=== PATIENT | female | born 1995 | race Caucasian/White ===

== ENCOUNTER 2018-04-29 13:38 | Outpatient (CLI) | payer BC ==
[~2018-04-29 13:38] MED LIST: CAMRESE PO; CEPH-570 PO; METH18TA PO; SERT100T PO
== END 2018-04-29 23:59 | disposition home or self-care (01) ==
LOC: WOU 13:38
PROVIDERS: ATTEND Podiatrist Foot & Ankle Surgery
DX: B07.0 Plantar wart (principal); M79.671 Pain in right foot; F90.9 Attention-deficit hyperactivity disorder, unspecified type; Z79.899 Other long term (current) drug therapy; F41.9 Anxiety disorder, unspecified; F32.9 Major depressive disorder, single episode, unspecified
CPT/HCPCS: G0463; Z7610

== ENCOUNTER 2018-06-07 15:35 | Outpatient (CLI) | payer BC ==
[2018-06-07 16:25] LABS: BASOPHILS % (AUTO) 0.3 % (0.0-2.0); HEMATOCRIT 45 % (33-45); HEMOGLOBIN 14.6 g/dL (11.5-14.8); LYMPHOCYTES # (AUTO) 1.8 /CMM (0.8-4.8); LYMPHOCYTES % (AUTO) 27.8 % (20.0-44.0); MEAN CORPUSCULAR HEMOGLOBIN 31 PG (26.0-33.0); MEAN CORPUSCULAR HGB CONC 33 g/dl (31.0-36.0); MEAN CORPUSCULAR VOLUME 96 fL (82-100); MONOCYTES # (AUTO) 0.4 /CMM (0.1-1.30); NEUTROPHILS # (AUTO) 4.1 /CMM (1.8-8.9); NEUTROPHILS % (AUTO) 64.9 % (43.0-81.0); PLATELET COUNT (AUTO) 304 /CMM (150-450); RDW COEFFICIENT OF VARIATION 13.1 (11.5-15.0); RED BLOOD CELL COUNT(AUTO) 4.64 MIL/uL (4.0-5.2); WHITE BLOOD COUNT (AUTO) 6.4 K/uL (4.3-11.0)
[2018-06-07 16:31] LABS: CALCIUM, SERUM 8.7 mg/dL (8.5-10.1); CREATININE 0.6 mg/dL (0.6-1.3); POTASSIUM 4.4 mmol/L (3.5-5.1)
== END 2018-06-07 23:59 | disposition home or self-care (01) ==
LOC: LAB 15:35
PROVIDERS: ATTEND Family Medicine
DX: Z01.818 Encounter for other preprocedural examination (principal)
CPT/HCPCS: 36415; 80048-TC; 85025-TC

== ENCOUNTER 2018-06-21 05:52 | Day surgery (SDC) | payer BC ==
[2018-06-21] MEDS ORDERED: SILVER SULFADIAZINE CREAM 25 GM TUBE TP ONE (05:53)
[2018-06-21] MEDS ORDERED: BUPIVACAINE MPF 0.5% W/EPI INJ 30 ML VIAL ONE (07:02)
[2018-06-21] MEDS ORDERED: ANESTHESIA TRAY IN PYXIS 1 EA TRAY MC ONE (07:02)
[2018-06-21] MEDS ORDERED: LIDOCAINE 1% INJ 50 ML MDV IJ ONE (07:02)
[2018-06-21 07:20] LABS: INR 0.93 (0.87-1.13)
[2018-06-21] MEDS ORDERED: FENTANYL PF 100MCG/2ML AMPUL ONE (07:22)
[2018-06-21] MEDS ORDERED: MIDAZOLAM HCL 2 MG/2ML VIAL ONE (07:23)
== END 2018-06-21 09:45 | disposition home or self-care (01) ==
LOC: DS 05:52 → MED 06:00 → UNDOADMIN 06:00 → DS 09:45
PROVIDERS: ATTEND Podiatrist Foot & Ankle Surgery
DX: B07.0 Plantar wart (principal); F41.9 Anxiety disorder, unspecified; F32.9 Major depressive disorder, single episode, unspecified; Z98.890 Other specified postprocedural states; Z79.899 Other long term (current) drug therapy
CPT/HCPCS: 17110; 36415; 84702; 85610; 85730; A4217; A6209; A6402 ×2; J2250; J2405; J3010; J3490 ×3; 88305-TC

== ENCOUNTER 2019-11-29 13:41 | Outpatient (CLI) | payer BC | END 2019-11-29 23:59 | disposition home or self-care (01) | LOC: RAD 13:41 | PROVIDERS: ATTEND Family Medicine | DX: M79.645 Pain in left finger(s) (principal) | CPT/HCPCS: 73140-TC ==

== ENCOUNTER 2020-06-28 12:35 | Emergency (ER) | payer BC ==
[~2020-06-28] VITALS: Ht 165.1 cm; Wt 68.0 kg
[2020-06-28 12:44] VITALS: BP 124/69
[2020-06-28] MEDS ORDERED: ACETAMINOPHEN ES 500 MG TABLET PO ONE (13:00)
[2020-06-28] MEDS ORDERED: ACETAMINOPHEN ES 500 MG TABLET ONE (13:43)
--- NOTE | 2020-06-28 14:46 | NUR ---
COVID SWAB SENT. PATIENT A/OX4, NO RESP DISTRESS, AMBULATORY. Patient discharged to home in stable condition. Written and verbal after care instructions given. Patient verbalizes understanding of instruction.
== END 2020-06-28 14:47 | disposition home or self-care (01) ==
LOC: ER 12:36
DX: J02.9 Acute pharyngitis, unspecified (principal); Z20.828 Contact with and (suspected) exposure to other viral communicable diseases; R59.9 Enlarged lymph nodes, unspecified; R51 Headache
CPT/HCPCS: 87070; 87880; 99283; C9803; U0003; 86403-TC

== ENCOUNTER 2021-03-21 13:07 | Outpatient (CLI) | payer BC ==
[2021-03-21] MEDS ORDERED: GADOTERATE MEGLUMINE 10 MMOL/20 ML VIAL IV ONE (13:08)
[2021-03-21 14:05] LABS: BASOPHILS % (AUTO) 0.9 % (0.0-2.0); EOSINOPHILS % (AUTO) 2.2 % (0.0-6.0); HEMATOCRIT 43 % (33-45); HEMOGLOBIN 14.2 g/dL (11.5-14.8); LYMPHOCYTES # (AUTO) 1.4 /CMM (0.8-4.8); LYMPHOCYTES % (AUTO) 27.6 % (20.0-44.0); MEAN CORPUSCULAR HGB CONC 33 g/dl (31.0-36.0); MEAN CORPUSCULAR VOLUME 96 fL (82-100); MONOCYTES # (AUTO) 0.2 /CMM (0.1-1.30); NEUTROPHILS # (AUTO) 3.4 /CMM (1.8-8.9); NEUTROPHILS % (AUTO) 65.3 % (43.0-81.0); PLATELET COUNT (AUTO) 267 /CMM (150-450); RED BLOOD CELL COUNT(AUTO) 4.47 MIL/uL (4.0-5.2); WHITE BLOOD COUNT (AUTO) 5.1 K/uL (4.3-11.0)
[2021-03-21 14:26] LABS: BILIRUBIN,TOTAL 0.6 mg/dL (0.2-1.0); CALCIUM, SERUM 8.9 mg/dL (8.5-10.1); CREATININE 0.7 mg/dL (0.6-1.3); POTASSIUM 4.2 mmol/L (3.5-5.1); TOTAL PROTEIN, SERUM 7.5 g/dL (6.4-8.2)
[2021-03-21 14:33] LABS: FREE T4 (FREE THYROXINE) 0.78 ng/dL (0.76-1.46); THYROID STIMULATING HORMONE 1.126 uIU/mL (0.358-3.74)
[2021-03-22 06:06] LABS: PROLACTIN 17.3 ng/mL (4.8-23.3)
== END 2021-03-21 23:59 | disposition home or self-care (01) ==
LOC: MRI 13:07
PROVIDERS: ATTEND Family Medicine
DX: M25.78 Osteophyte, vertebrae (principal); R22.1 Localized swelling, mass and lump, neck
CPT/HCPCS: 36415; 72156; 72157; 80053; 80061; 82306; 82533; 83036; 84146; 84439; 84443; 85025; A9575

== ENCOUNTER 2022-01-13 10:50 | Outpatient (CLI) | payer BC ==
[2022-01-13 11:47] LABS: BASOPHILS % (AUTO) 0.6 % (0.0-2.0); EOSINOPHILS % (AUTO) 2.6 % (0.0-6.0); HEMATOCRIT 42 % (33-45); LYMPHOCYTES # (AUTO) 1.4 K/uL (0.8-4.8); LYMPHOCYTES % (AUTO) 25.7 % (20.0-44.0); MEAN CORPUSCULAR HGB CONC 34 g/dl (31.0-36.0); MEAN CORPUSCULAR VOLUME 94 fL (82-100); MONOCYTES # (AUTO) 0.3 K/uL (0.1-1.30); MONOCYTES % (AUTO) 4.7 % (2.0-12.0); NEUTROPHILS # (AUTO) 3.5 K/uL (1.8-8.9); NEUTROPHILS % (AUTO) 66.4 % (43.0-81.0); PLATELET COUNT (AUTO) 239 K/uL (150-450); RED BLOOD CELL COUNT(AUTO) 4.45 MIL/uL (4.0-5.2); WHITE BLOOD COUNT (AUTO) 5.3 K/uL (4.3-11.0)
[2022-01-13 12:32] LABS: CREATININE 0.7 mg/dL (0.6-1.3); POTASSIUM 3.8 mmol/L (3.5-5.1); TOTAL PROTEIN, SERUM 7.3 g/dL (6.4-8.2)
[2022-01-13 14:48] LABS: BILIRUBIN,TOTAL 0.4 mg/dL (0.2-1.0)
== END 2022-01-13 23:59 | disposition home or self-care (01) ==
LOC: LAB 10:50
PROVIDERS: ATTEND Family Medicine
DX: R23.3 Spontaneous ecchymoses (principal)
CPT/HCPCS: 36415; 80053-TC; 85025-TC; 85730-TC

== ENCOUNTER 2022-02-19 08:06 | Outpatient (CLI) | payer BC ==
[2022-02-19 09:51] LABS: BASOPHILS % (AUTO) 0.5 % (0.0-2.0); EOSINOPHILS % (AUTO) 0.5 % (0.0-6.0); HEMATOCRIT 45 % (33-45); HEMOGLOBIN 15.1 g/dL (11.5-14.8); LYMPHOCYTES # (AUTO) 1.5 K/uL (0.8-4.8); LYMPHOCYTES % (AUTO) 19.4 % (20.0-44.0); MEAN CORPUSCULAR HGB CONC 34 g/dl (31.0-36.0); MEAN CORPUSCULAR VOLUME 94 fL (82-100); MONOCYTES # (AUTO) 0.3 K/uL (0.1-1.30); NEUTROPHILS # (AUTO) 5.7 K/uL (1.8-8.9); NEUTROPHILS % (AUTO) 75.6 % (43.0-81.0); PLATELET COUNT (AUTO) 293 K/uL (150-450); RED BLOOD CELL COUNT(AUTO) 4.79 MIL/uL (4.0-5.2); WHITE BLOOD COUNT (AUTO) 7.5 K/uL (4.3-11.0)
[2022-02-19 10:19] LABS: ALBUMIN 4.4 g/dL (3.4-5.0); BILIRUBIN,TOTAL 0.3 mg/dL (0.2-1.0); CALCIUM, SERUM 9.3 mg/dL (8.5-10.1); CREATININE 0.7 mg/dL (0.6-1.3); POTASSIUM 3.7 mmol/L (3.5-5.1); TOTAL PROTEIN, SERUM 8.1 g/dL (6.4-8.2)
[2022-02-19 10:29] LABS: THYROID STIMULATING HORMONE 0.826 uIU/mL (0.358-3.74)
[2022-02-20 05:07] LABS: PROLACTIN 14.7 ng/mL (4.8-23.3); THYROID PEROXIDASE (TPO) AB 9 IU/mL (0-34)
[2022-02-20 12:06] LABS: ACTH, PLASMA <1.5 pg/mL (7.2-63.3)
== END 2022-02-19 23:59 | disposition home or self-care (01) ==
LOC: LAB 08:06
PROVIDERS: ATTEND Internal Medicine Endocrinology, Diabetes & Metabolism
DX: E78.00 Pure hypercholesterolemia, unspecified (principal); E04.9 Nontoxic goiter, unspecified; R63.5 Abnormal weight gain
CPT/HCPCS: 36415; 80053-TC; 80061-TC; 82024; 82533; 82626; 84146; 84439-TC; 84443-TC; 85025-TC; 86376